=== PATIENT | female | born 1985 | race Caucasian/White ===

== ENCOUNTER 2017-03-22 12:17 | Emergency (ER) | payer OTHER ==
[~2017-03-22] VITALS: Ht 170.2 cm; Wt 54.3 kg
[~2017-03-22 12:17] MED LIST: ALBUTEROL SULF8.5 GM IH; CIPROFLOXACIN500 M1 PO; CITRATE OF MAG296 ML PO; DOXYCYCLINE HY100 MG PO; ENDOCET 5-3251 EACH PO; FAMOTIDINE40 MG PO; HYDROCODON-ACE1 EAC7 PO; KEFLEX500 MG PO; Keflex PO; METRONIDAZOLE500 MG PO; MIRALAX17 GM PO; MOBIC15 MG PO; MOTRIN600 MG PO; MOTRIN800 MG PO; NAPROSYN375 MG PO; NO MEDS; NOHOMEMEDS; NORCO 10/3251 TABLET PO; OXYCODONE HCL5 MG PO; PAIN RELIEVER325 MG PO; PEN-VEE K,VEET500 MG PO; PERCOCET 5/31 TABLET PO; PHENERGAN; PHENERGAN25 MG PR; SILVADENE20 GM TP; TESSALON200 MG PO; TRIACTIN50 MG/5 ML PO; ULTRAM50 MG PO; VANCOMYCIN HCL125 MG PO; VICODIN,LORT1 TABLET; Vancocin Oral Solution PO; ZOFRAN ODT4 MG PO; ZOFRAN4 MG PO; no home med
[2017-03-22 15:07] LABS: HEMATOCRIT 39.1 % (36.0-46.0); MCH 28.5 PG (29.0-34.0); MCV 86.5 FL (83-99); MEAN PLAT.VOLUME 9.2 uM^3 (9.5-12.4); PLATELET COUNT 284 K/uL (156-360); RBC DIS.WIDTH-CV 13.7 % (11.8-14.6); RBC DIS.WIDTH-SD 43.7 % (39-53); RED BLOOD COUNT 4.52 M/uL (3.80-5.20); WHITE BLOOD COUNT 6.7 K/uL (4.1-10.2)
[2017-03-22 15:17] LABS: CHLORIDE 106 mEq/L (99-109); POTASSIUM 3.5 mEq/L (3.7-5.4); SODIUM 141 mEq/L (136-147)
[2017-03-22 15:20] LABS: GLUCOSE 106 mg/dL (70-99)
[2017-03-22 15:21] LABS: ANION GAP 12 MEQ/L (2-14)
[2017-03-22 15:22] LABS: TOTAL BILIRUBIN 0.5 mg/dL (0.0-1.0)
[2017-03-22 15:23] LABS: ALKALINE PHOSPHATASE 77 IU/L (3-129); GFR ESTIMATE (CALCULATED) > 59 mL/min/
[2017-03-22 15:24] LABS: UREA NITROGEN (BUN) 12 mg/dL (9-23)
[2017-03-22 15:27] LABS: LIPASE 18 U/L (1.0-51.0)
[2017-03-22 15:37] LABS: QUANTITATIVE HCG < 4.0 MIU/ML
[2017-03-22 16:32] LABS: ADD MIUA? YES; BILIRUBIN NEGATIVE; BLOOD NEGATIVE; COLOR YELLOW ((YELLOW)); GLUCOSE (STRIP) NEGATIVE; KETONES 20; LEUKOCYTES NEGATIVE; NITRITE POSITIVE; PROTEIN (STRIP) 30; SPECIFIC GRAVITY 1.027 (1.000-1.030); UROBILINOGEN 0.2 MG/DL (0.2-1.0)
[2017-03-22 17:04] LABS: EPITHELIAL CELLS 1+ /HPF; RED BLOOD CELLS 0-5 /HPF (0-5); WHITE BLOOD CELLS 0-5 /HPF (0-5)
[2017-03-22 17:05] LABS: BACTERIA 4+ /HPF; MUCUS NONE SEEN /LPF; UCUL ADDED? YES
[2017-03-22] MEDS ORDERED: PYRIDIUM200 MG PO (17:13)
[2017-03-22] MEDS ORDERED: KEFLEX500 MG PO (17:13)
[2017-03-22 17:27] VITALS: BP 148/100
[2017-03-22] MEDS ORDERED: SUBOXONE 4 MG-1 EACH SL (17:27)
== END 2017-03-22 17:28 | disposition home or self-care (01) ==
LOC: EME 12:17
PROVIDERS: Physician Assistant Medical
DX: N30.90 Cystitis, unspecified without hematuria (principal); R19.7 Diarrhea, unspecified; Z90.49 Acquired absence of other specified parts of digestive tract; F17.200 Nicotine dependence, unspecified, uncomplicated
CPT/HCPCS: 74022; 76856; 80053; 81003; 83690; 84702; 85027; 87077; 87086; 87186; 87493; 87506; 99281; 99285; J1885; J2270; J7030

== ENCOUNTER 2017-07-31 18:38 | Emergency (ER) | payer OTHER ==
[~2017-07-31] VITALS: Ht 167.6 cm; Wt 55.4 kg
[~2017-07-31 18:38] MED LIST changes: +PYRIDIUM200 MG PO; +SUBOXONE 4 MG-1 EACH SL
[2017-07-31 19:51] LABS: EOSINOPHIL (%) 2.2 % (0-5); EOSINOPHIL COUNT 0.2 K/uL (0-0.3); HEMATOCRIT 33.8 % (36.0-46.0); IMMATURE GRANULOCYTE (%) 0.5 % (0.0-0.7); IMMATURE GRANULOCYTE COUNT 0.1 K/uL; INSTRUMENT ABS NEUTROPHIL CT 6.4 K/uL; MCHC 33.4 G/DL (30.0-36.0); MCV 86.9 FL (83-99); MEAN PLAT.VOLUME 9.6 uM^3 (9.5-12.4); MONOCYTE (%) 8.9 % (3-12); MONOCYTE COUNT 0.9 K/uL (0-0.8); NEUTROPHIL (%) 66.9 % (45-76); NEUTROPHIL COUNT 6.4 K/uL (1.8-6.4); PLATELET COUNT 224 K/uL (156-360); RBC DIS.WIDTH-CV 13.9 % (11.8-14.6); RBC DIS.WIDTH-SD 44.3 % (39-53); RED BLOOD COUNT 3.89 M/uL (3.80-5.20); WHITE BLOOD COUNT 9.6 K/uL (4.1-10.2)
[2017-07-31 19:57] LABS: CHLORIDE 108 mEq/L (99-109); POTASSIUM 3.3 mEq/L (3.7-5.4); SODIUM 137 mEq/L (136-147)
[2017-07-31 20:00] LABS: GLUCOSE 94 mg/dL (70-99)
[2017-07-31 20:01] LABS: ANION GAP 8 MEQ/L (2-14)
[2017-07-31 20:02] LABS: TOTAL BILIRUBIN 0.4 mg/dL (0.0-1.0)
[2017-07-31 20:03] LABS: ALKALINE PHOSPHATASE 72 IU/L (3-129); GFR ESTIMATE (CALCULATED) > 59 mL/min/
[2017-07-31 20:04] LABS: UREA NITROGEN (BUN) 11 mg/dL (9-23)
[2017-07-31 20:06] LABS: ADD MIUA? YES; BILIRUBIN NEGATIVE; BLOOD LARGE; COLOR AMBER ((YELLOW)); GLUCOSE (STRIP) NEGATIVE; KETONES NEGATIVE; LEUKOCYTES TRACE; NITRITE NEGATIVE; PROTEIN (STRIP) 100; SPECIFIC GRAVITY 1.027 (1.000-1.030)
[2017-07-31 20:07] LABS: LIPASE 93 U/L (1.0-51.0)
[2017-07-31 20:10] LABS: TROP-I INTERPRETATION NEGATIVE; TROPONIN-I < 0.01 ng/mL (0.0-0.30)
[2017-07-31 20:12] LABS: QUANTITATIVE HCG < 4.0 MIU/ML
[2017-07-31 20:20] LABS: BACTERIA RARE /HPF; CASTS NONE SEEN /LPF; CRYSTALS NONE SEEN; EPITHELIAL CELLS RARE /HPF; MUCUS NONE SEEN /LPF; RED BLOOD CELLS TNTC /HPF (0-5); WHITE BLOOD CELLS 0-5 /HPF (0-5)
[2017-07-31] MEDS ORDERED: ULTRAM50 MG PO (20:38)
[2017-07-31] MEDS ORDERED: ZOFRAN ODT4 MG PO (20:38)
[2017-07-31 20:48] VITALS: BP 122/71
== END 2017-07-31 20:49 | disposition home or self-care (01) ==
LOC: EME 18:38
PROVIDERS: Physician Assistant
DX: R10.11 Right upper quadrant pain (principal); B19.20 Unspecified viral hepatitis C without hepatic coma; F17.200 Nicotine dependence, unspecified, uncomplicated; Z98.51 Tubal ligation status; Z88.6 Allergy status to analgesic agent
CPT/HCPCS: 74022; 80053; 81003; 83690; 84484; 84702; 85025; 93005; 99281; 99284; J3010

== ENCOUNTER 2017-11-05 18:57 | Emergency (ER) | payer OTHER ==
[~2017-11-05] VITALS: Ht 172.7 cm; Wt 56.8 kg
[2017-11-05 19:03] VITALS: BP 134/73
[2017-11-05 20:12] LABS: HEMATOCRIT 39.3 % (36.0-46.0); HEMOGLOBIN 13.5 G/DL (11.9-15.5); MCH 29.6 PG (29.0-34.0); MCHC 34.4 G/DL (30.0-36.0); MCV 86.2 FL (83-99); PLATELET COUNT 269 K/uL (156-360); RBC DIS.WIDTH-CV 14.1 % (11.8-14.6); RBC DIS.WIDTH-SD 44.8 % (39-53); RED BLOOD COUNT 4.56 M/uL (3.80-5.20); WHITE BLOOD COUNT 20.4 K/uL (4.1-10.2)
[2017-11-05 20:20] LABS: ALBUMIN 4.4 g/dL (3.2-4.8)
[2017-11-05 20:21] LABS: CHLORIDE 106 mEq/L (99-109); POTASSIUM 3.5 mEq/L (3.7-5.4); SODIUM 141 mEq/L (136-147)
[2017-11-05 20:23] LABS: GLUCOSE 111 mg/dL (70-99)
[2017-11-05 20:25] LABS: TOTAL BILIRUBIN 0.8 mg/dL (0.0-1.0)
[2017-11-05 20:26] LABS: ALKALINE PHOSPHATASE 77 IU/L (3-129)
[2017-11-05 20:27] LABS: CREATININE 0.8 mg/dL (0.6-1.3); GFR ESTIMATE (CALCULATED) > 59 mL/min/
[2017-11-05 20:28] LABS: AST (GOT) 21 IU/L (2-34); UREA NITROGEN (BUN) 13 mg/dL (9-23)
[2017-11-05 20:29] LABS: ALT (GPT) 18 IU/L (3-49)
[2017-11-05 20:30] LABS: LIPASE 14 U/L (1.0-51.0)
[2017-11-05 20:36] LABS: QUANTITATIVE HCG < 4.0 MIU/ML
== END 2017-11-05 20:20 | disposition left against medical advice (07) ==
LOC: EME 18:57
DX: R10.30 Lower abdominal pain, unspecified (principal); R19.7 Diarrhea, unspecified; R11.2 Nausea with vomiting, unspecified; E86.0 Dehydration; J45.909 Unspecified asthma, uncomplicated; B19.20 Unspecified viral hepatitis C without hepatic coma; F41.9 Anxiety disorder, unspecified; F17.200 Nicotine dependence, unspecified, uncomplicated; Z87.19 Personal history of other diseases of the digestive system; Z88.5 Allergy status to narcotic agent
CPT/HCPCS: 80053; 81003; 83690; 84702; 85027; 99281; 99284; J0780; J2270; J7040

== ENCOUNTER 2017-12-08 09:08 | Inpatient (IN) | payer OTHER ==
[~2017-12-08] VITALS: Ht 167.6 cm; Wt 54.8 kg
[2017-12-08 10:25] LABS: HEMATOCRIT 38.4 % (36.0-46.0); HEMOGLOBIN 13.6 G/DL (11.9-15.5); MCH 28.9 PG (29.0-34.0); MCHC 35.4 G/DL (30.0-36.0); MCV 81.5 FL (83-99); PLATELET COUNT 104 K/uL (156-360); RBC DIS.WIDTH-CV 14.9 % (11.8-14.6); RBC DIS.WIDTH-SD 44.6 % (39-53); RED BLOOD COUNT 4.71 M/uL (3.80-5.20); WHITE BLOOD COUNT 16.2 K/uL (4.1-10.2)
[2017-12-08 10:30] LABS: INTER. NORMALIZED RATIO 1.1
[2017-12-08 10:35] LABS: ALBUMIN 3.5 g/dL (3.2-4.8); CHLORIDE 98 mEq/L (99-109); POTASSIUM 4.2 mEq/L (3.7-5.4); SODIUM 135 mEq/L (136-147)
[2017-12-08 10:37] LABS: GLUCOSE 135 mg/dL (70-99); TOTAL PROTEIN 6.5 g/dL (6.4-8.3)
[2017-12-08 10:39] LABS: TOTAL BILIRUBIN 8.8 mg/dL (0.0-1.0)
[2017-12-08 10:41] LABS: ALKALINE PHOSPHATASE 317 IU/L (3-129); CREATININE 0.7 mg/dL (0.6-1.3); GFR ESTIMATE (CALCULATED) > 59 mL/min/
[2017-12-08 10:42] LABS: UREA NITROGEN (BUN) 16 mg/dL (9-23)
[2017-12-08 10:44] LABS: AST (GOT) 1027 IU/L (2-34); LIPASE 6 U/L (1.0-51.0)
[2017-12-08 10:53] LABS: ALT (GPT) 3299 IU/L (3-49)
[2017-12-08 11:15] LABS: ABS NEUTROPHIL COUNT 3.8; ANISOCYTOSIS 1+; ATYPICAL LYMPHOCYTE 17.5 %; BAND NEUTROPHILS 3.5 % (0-8.0); BURR CELLS 1+; EOSINOPHIL ABS CT 0.3; EOSINOPHILS 1.8 % (0-5.0); LYMPHOCYTES 52.6 % (15.0-45.0); MACROCYTES 1+; MONOCYTES 4.4 % (0-9.0); PLAT.SUFFICIENCY DECREASED; POIKILOCYTOSIS 2+; SEG.NEUTROPHILS 20.2 % (46.0-76.0); SMUDGE CELLS 11.4
[2017-12-08] MEDS ORDERED: ADVIL,NUPRIN,M200 MG PO (12:03)
[2017-12-08 13:04] LABS: SERUM ETHYL ALCOHOL < 10 mg/dL
[2017-12-08 13:07] LABS: ACETAMINOPHEN (TYLENOL) < 10 mcg/mL (10-30)
[2017-12-08 14:01] LABS: IMMUNOGLOBULIN G 864 MG/DL (650-1600); IMMUNOGLOBULIN M 472 MG/DL (50-300)
[2017-12-08 14:01] LABS: HIGH-SENS C-REACTIVE PROTEIN 1.92 MG/DL (0.02-0.20)
[2017-12-08 14:17] LABS: HEPATITIS B SURFACE ANTIGEN Nonreactive
[2017-12-08 14:19] LABS: ANTI-HEPATITIS A VIRUS (IGM) Nonreactive
[2017-12-08 14:20] LABS: ANTI-HEPATITIS B CORE (IGM) Nonreactive
[2017-12-08 14:21] LABS: HIV-1/2 AB/AG COMBO Nonreactive
[2017-12-08 14:22] LABS: HEPATITIS C ANTIBODY REACTIVE
[2017-12-08 15:50] VITALS: BP 119/85
[2017-12-08 20:00] VITALS: BP 129/80
[2017-12-08 22:27] LABS: APPEARANCE CLEAR ((CLEAR)); BILIRUBIN MODERATE; BLOOD NEGATIVE; COLOR AMBER ((YELLOW)); GLUCOSE (STRIP) NEGATIVE; KETONES NEGATIVE; LEUKOCYTES NEGATIVE; NITRITE NEGATIVE; PROTEIN (STRIP) 30; SPECIFIC GRAVITY 1.038 (1.000-1.030); UCUL ADDED? NO
[2017-12-08 22:31] LABS: ICTOTEST POSITIVE
[2017-12-08 22:50] LABS: BENZODIAZEPINES, URINE SCREEN Negative (200 ng/mL)
[2017-12-08 23:45] VITALS: BP 111/57
[2017-12-09 04:00] VITALS: BP 114/79
[2017-12-09 06:01] LABS: HEMATOCRIT 34.8 % (36.0-46.0); HEMOGLOBIN 11.9 G/DL (11.9-15.5); MCH 28.2 PG (29.0-34.0); MCHC 34.2 G/DL (30.0-36.0); MCV 82.5 FL (83-99); PLATELET COUNT 115 K/uL (156-360); RBC DIS.WIDTH-CV 15.1 % (11.8-14.6); RBC DIS.WIDTH-SD 45.5 % (39-53); RED BLOOD COUNT 4.22 M/uL (3.80-5.20); WHITE BLOOD COUNT 11.3 K/uL (4.1-10.2)
[2017-12-09 08:07] LABS: ALBUMIN 2.9 G/DL (3.2-4.8); ALKALINE PHOSPHATASE 244 IU/L (3-129); AST (GOT) 321 IU/L (2-34); CHLORIDE 102 MEQ/L (99-109); CREATININE 0.5 MG/DL (0.6-1.3); GFR ESTIMATE (CALCULATED) > 59 mL/min/; GLUCOSE 132 mg/dL (70-99); IRON 111 MCG/DL (35-150); POTASSIUM 3.6 MEQ/L (3.7-5.4); SODIUM 136 MEQ/L (136-147); TOTAL BILIRUBIN 7.5 MG/DL (0.0-1.0); TOTAL PROTEIN 5.2 G/DL (6.4-8.3); TRANSFERRIN (TIBC) 260.8 mg/dL (215-380); TRANSFERRIN SATUR. 43 % (20-55); UREA NITROGEN (BUN) 9 mg/dL (9-23)
[2017-12-09 08:10] LABS: ALT (GPT) 1928 IU/L (3-49)
[2017-12-09 08:22] LABS: FERRITIN 206 NG/ML (10-291)
[2017-12-09 08:30] VITALS: BP 137/86
[2017-12-09 09:58] LABS: MAGNESIUM 1.9 mg/dl (1.3-2.7)
[2017-12-09 11:50] VITALS: BP 128/74
[2017-12-09 16:06] VITALS: BP 130/72
[2017-12-09 20:00] VITALS: BP 136/92
[2017-12-09 20:42] LABS: ALPHA-1-ANTITRYPSIN+ 246 mg/dL (83-199)
[2017-12-09 23:44] VITALS: BP 125/85
[2017-12-10 04:00] VITALS: BP 149/91
[2017-12-10 08:24] VITALS: BP 139/85
[2017-12-10 08:41] LABS: HEMOGLOBIN 12.2 G/DL (11.9-15.5); MCHC 33.9 G/DL (30.0-36.0); MCV 82.8 FL (83-99); RBC DIS.WIDTH-CV 15.5 % (11.8-14.6); RBC DIS.WIDTH-SD 47.1 % (39-53); RED BLOOD COUNT 4.35 M/uL (3.80-5.20); WHITE BLOOD COUNT 10.9 K/uL (4.1-10.2)
[2017-12-10 08:48] LABS: PLATELET COUNT 193 K/uL (156-360)
[2017-12-10 10:01] LABS: ALKALINE PHOSPHATASE 286 IU/L (3-129); DIRECT BILIRUBIN 2.9 mg/dL (0.0-0.3); TOTAL PROTEIN 5.8 G/DL (6.4-8.3)
[2017-12-10 10:02] LABS: ALT (GPT) 1208 IU/L (3-49); AST (GOT) 128 IU/L (2-34); TOTAL BILIRUBIN 4.8 MG/DL (0.0-1.0)
[2017-12-10 10:03] VITALS: BP 122/78
[2017-12-10 10:06] LABS: MITOCHONDRIAL (M2) ANTIBODIES+ <=20.0 U (<=20.0)
[2017-12-10 11:32] LABS: ANTI-SMOOTH MUSCLE (Actin)+ <20 U (<20)
[2017-12-10 12:39] LABS: LIVER/KIDNEY MICROSOMAL ABY+ <=20.0 U (<=20.0)
[2017-12-12 21:14] LABS: ALPHA-1-ANTITRYPSIN+ 213 mg/dL (83-199)
== END 2017-12-10 10:34 | disposition left against medical advice (07) | DRG 443 ==
LOC: EME 09:08 → 4EAST 13:06 → EDOF 13:06 → ENRESERV 13:10 → 4EAST 15:47 → ENRESERV 12-10 06:22 → 4EAST 12-10 10:34
PROVIDERS: Emergency Medicine; Internal Medicine; Internal Medicine Gastroenterology
DX: B19.20 Unspecified viral hepatitis C without hepatic coma (principal); R74.8 Abnormal levels of other serum enzymes; D69.6 Thrombocytopenia, unspecified; R74.0 Nonspecific elevation of levels of transaminase and lactic acid dehydrogenase [LDH]; F12.10 Cannabis abuse, uncomplicated; F11.10 Opioid abuse, uncomplicated; F17.200 Nicotine dependence, unspecified, uncomplicated; Z90.49 Acquired absence of other specified parts of digestive tract
CPT/HCPCS: 74177; 76705; 80053; 80074; 80076; 80306 90; 81003; 82103 90; 82140; 82248; 82390; 82728; 82784; 82943 90; 83516 90; 83540; 83690; 83735; 84466; 85025; 85027; 85610; 85652; 86038; 86141; 86256 90; 86376 90; 86803; 87040; 87389; 87449; 87522 90; 99281; 99284; G0480; J1170; J1650; J2270; J2405; J7042

== ENCOUNTER 2018-06-14 11:05 | Emergency (ER) | payer OTHER ==
[~2018-06-14] VITALS: Ht 167.6 cm; Wt 56.0 kg
[~2018-06-14 11:05] MED LIST changes: +ADVIL,NUPRIN,M200 MG PO
[2018-06-14 11:37] LABS: BASOPHIL (%) 0.2 % (0-1); EOSINOPHIL (%) 0.1 % (0-5); HEMATOCRIT 35.4 % (36.0-46.0); IMMATURE GRANULOCYTE (%) 0.3 % (0.0-0.7); LYMPHOCYTE (%) 10.5 % (15-42); LYMPHOCYTE COUNT 1.6 K/uL (1.0-2.8); MCHC 33.9 G/DL (30.0-36.0); MCV 85.5 FL (83-99); MONOCYTE COUNT 0.5 K/uL (0-0.8); NEUTROPHIL (%) 85.9 % (45-76); NEUTROPHIL COUNT 12.8 K/uL (1.8-6.4); PLATELET COUNT 285 K/uL (156-360); RBC DIS.WIDTH-CV 15.1 % (11.8-14.6); RBC DIS.WIDTH-SD 46.9 % (39-53); RED BLOOD COUNT 4.14 M/uL (3.80-5.20); WHITE BLOOD COUNT 14.9 K/uL (4.1-10.2)
[2018-06-14 12:02] LABS: ALBUMIN 4.2 G/DL (3.2-4.8); CHLORIDE 104 MEQ/L (99-109); POTASSIUM 4.4 MEQ/L (3.7-5.4); SODIUM 141 MEQ/L (136-147); TOTAL BILIRUBIN 0.3 MG/DL (0.0-1.0)
[2018-06-14 12:08] LABS: ALKALINE PHOSPHATASE 81 IU/L (3-129); ALT (GPT) 23 IU/L (3-49); AST (GOT) 19 IU/L (2-34); CREATININE 0.7 MG/DL (0.6-1.3); GFR ESTIMATE (CALCULATED) > 59 mL/min/; GLUCOSE 117 mg/dL (70-99); LIPASE 12 U/L (1.0-51.0); TOTAL PROTEIN 7.1 G/DL (6.4-8.3); UREA NITROGEN (BUN) 13 mg/dL (9-23)
[2018-06-14 12:16] VITALS: BP 146/82
== END 2018-06-14 12:16 | disposition left against medical advice (07) ==
LOC: EME 11:05
PROVIDERS: Emergency Medicine
DX: R11.2 Nausea with vomiting, unspecified (principal); R10.84 Generalized abdominal pain; I10 Essential (primary) hypertension; F41.9 Anxiety disorder, unspecified; K21.9 Gastro-esophageal reflux disease without esophagitis; B19.20 Unspecified viral hepatitis C without hepatic coma; Z88.5 Allergy status to narcotic agent; F17.200 Nicotine dependence, unspecified, uncomplicated
CPT/HCPCS: 80053; 83690; 85025; J1885; J2765; J7030

== ENCOUNTER 2018-06-22 08:51 | Emergency (ER) | payer OTHER ==
[~2018-06-22] VITALS: Ht 162.6 cm; Wt 57.9 kg
[2018-06-22 09:53] LABS: BASOPHIL (%) 0.4 % (0-1); EOSINOPHIL (%) 1.1 % (0-5); EOSINOPHIL COUNT 0.1 K/uL (0-0.3); HEMOGLOBIN 15.1 G/DL (11.9-15.5); IMMATURE GRANULOCYTE (%) 0.2 % (0.0-0.7); LYMPHOCYTE (%) 21.9 % (15-42); LYMPHOCYTE COUNT 2.2 K/uL (1.0-2.8); MCH 28.5 PG (29.0-34.0); MCHC 34.3 G/DL (30.0-36.0); MCV 83.2 FL (83-99); MONOCYTE (%) 6.5 % (3-12); MONOCYTE COUNT 0.6 K/uL (0-0.8); NEUTROPHIL (%) 69.9 % (45-76); NEUTROPHIL COUNT 6.9 K/uL (1.8-6.4); PLATELET COUNT 310 K/uL (156-360); RBC DIS.WIDTH-CV 14.3 % (11.8-14.6); RBC DIS.WIDTH-SD 43.4 % (39-53); RED BLOOD COUNT 5.29 M/uL (3.80-5.20); WHITE BLOOD COUNT 9.8 K/uL (4.1-10.2)
[2018-06-22 09:56] LABS: CHLORIDE 86 mEq/L (99-109); POTASSIUM 2.9 mEq/L (3.7-5.4); SODIUM 137 mEq/L (136-147)
[2018-06-22 09:58] LABS: GLUCOSE 123 mg/dL (70-99); TOTAL PROTEIN 9.2 g/dL (6.4-8.3)
[2018-06-22 10:00] LABS: TOTAL BILIRUBIN 0.8 mg/dL (0.0-1.0)
[2018-06-22 10:02] LABS: ALKALINE PHOSPHATASE 105 IU/L (3-129); CREATININE 1.1 mg/dL (0.6-1.3); GFR ESTIMATE (CALCULATED) > 59 mL/min/
[2018-06-22 10:03] LABS: UREA NITROGEN (BUN) 28 mg/dL (9-23)
[2018-06-22 10:04] LABS: AST (GOT) 28 IU/L (2-34)
[2018-06-22 10:05] LABS: ALT (GPT) 31 IU/L (3-49)
[2018-06-22 10:11] LABS: QUANTITATIVE HCG < 4.0 MIU/ML
[2018-06-22 10:47] VITALS: BP 139/95
== END 2018-06-22 11:08 | disposition left against medical advice (07) ==
LOC: EME 08:51
PROVIDERS: Emergency Medicine
DX: R11.2 Nausea with vomiting, unspecified (principal); R10.9 Unspecified abdominal pain; E87.6 Hypokalemia; E83.52 Hypercalcemia; E86.0 Dehydration; F41.9 Anxiety disorder, unspecified; M54.5 Low back pain; Z98.51 Tubal ligation status; Z90.49 Acquired absence of other specified parts of digestive tract; Z86.19 Personal history of other infectious and parasitic diseases; F17.200 Nicotine dependence, unspecified, uncomplicated; Z53.29 Procedure and treatment not carried out because of patient's decision for other reasons
CPT/HCPCS: 80053; 81003; 82140; 84702; 85025; 99281; 99285; J1200; J1630; J2405; J7040